=== PATIENT | male | born 1950 | race Caucasian/White ===

== ENCOUNTER → 2020-12-12 | Outpatient (CLI) | payer BC, MEDICARE, OTHER ==
--- NOTE | 2020-12-17 15:43 | SLEEPCENT ---
DATE: 12/12/2020 ORDERED BY: TAY Hinds Nocturnal polysomnography was performed for evaluation of sleep physiology in this patient with a history of excessive somnolence, snoring and nonrestorative sleep. Seven hours and 40 minutes of data were reviewed. There were only 181 minutes of sleep identified. Sleep latency was quite prolonged at 68 minutes. REM latency was somewhat prolonged at 162 minutes. Sleep architecture showed poor progression. One REM cycle was noted. Overall sleep efficiency was only 39.7%. The electrocardiogram showed a sinus rhythm with an average heart rate of 58 beats per minute. EEG showed normal waveforms for wake and sleep. There were only 4 respiratory events identified of 10 seconds in duration or greater for an apnea-hypopnea index within normal limits at 1.3. The events seen were hypopneic. Arousals from respiratory events when arousals from snoring were included occurred 3 times per hour. There were no oxygen desaturations below 90% and there was some minor limb activity with a limb movement arousal index of 2.3. IMPRESSION: Borderline normal nocturnal polysomnography with snoring. RECOMMENDATION: The patient had difficulty establishing and maintain sleep in the [facility] on the first night. If sleep symptoms persist, repeat testing may be helpful at identifying mild disease.
== END ==
LOC: M SLEEP 20:00
PROVIDERS: ATTEND Nurse Practitioner Family
DX: R06.83 Snoring (principal)